=== PATIENT | male | born 1985 | race Caucasian/White ===

== ENCOUNTER 2024-12-11 20:11 | Emergency (ER) | payer OTHER, SELFPAY ==
[2024-12-11] VITALS (16 sets, daily range): BP systolic 109–138; BP diastolic 70–85; PULSE 76–93; RESP 9–22; TEMP 36.8; O2SAT 95–100
--- NOTE | ~2024-12-11 | XR_ITS ---
CHEST RADIOGRAPH CLINICAL HISTORY: hypoxia s/p Narcan . COMPARISON: None available TECHNIQUE: Single portable view of the chest. FINDINGS The cardiomediastinal silhouette is unremarkable. The lungs are clear. IMPRESSION: No focal infiltrate or effusion. Reviewed, dictated and finalized at location A.
--- NOTE | 2024-12-11 20:22 | PC.NURSE ---
while assessing patients mentation and orientation he began swearing at this rn, stating I don't have to fucking answer to you, I'm not answering your fucking questions patient educated that being hateful and verbally aggressive is not tolerated.
--- NOTE | 2024-12-11 20:32 | ED.GENADULT ---
HPI - General Adult General Chief complaint: Unspecified Stated complaint: Unresponsive/apnic, resolved with Narcan Time Seen by Provider: 12/11/24 20:13 History of Present Illness HPI narrative: 39-year-old male with a past medical history including polysubstance abuse including fentanyl and we had. Patient presents to the emergency department after having a fentanyl overdose. He states he insufflated fentanyl about 730 and was found unresponsive and apneic. He had 2 mg of intravenous Narcan and was BVM ventilated by EMS as he was hypoxic. Patient responded and was awake afterwards. Last no some Narcan was at 8:00 p.m.. Patient is presently awake alert oriented, saturating 98% on room air and has no complaints besides feeling nauseous and cold. States that he took a normal amount of fentanyl that he normally does. Denies any other recent injuries or illnesses. Denies any shortness a breath or chest pain at this time. Denies any other substance use or alcohol intake. Related Data Allergies Allergy/AdvReac Type Severity Reaction Status Date / Time No Known Allergies Allergy Mild Verified 03/18/10 14:15 Review of Systems Review of Systems: As reviewed above in HPI Exam Narrative: GENERAL: Disheveled appearance, not any acute distress, awake and answering questions HEAD: [Normocephalic, atraumatic.] EYES: [PERRLA and EOMI.] ENT: Nares clear, no rhinorrhea or epistaxis. Mucous membranes moist. NECK: Supple. CHEST: [Clear to auscultation. No respiratory distress.] HEART: [Regular rate and rhythm]. No murmur heard. [Normal peripheral pulses.] ABDOMEN: [Soft, nondistended], [nontender], [No rigidity or guarding] EXTREMITIES: Normal range of motion. [No edema.] SKIN: Warm, dry, no rash. NEURO: [No focal deficits]. Alert and oriented [x3.] PSYCH: [Normal mood and affect.] Course Course Emergency Course: Signed out to oncoming physician Dr. Zepeda 10:00 p.m. pending re-evaluation for discharge home. Vital Signs Vital signs: Vital Signs Temperature 36.8 C 12/11/24 20:12 Pulse Rate 93 12/11/24 20:12 Respiratory Rate 16 12/11/24 20:12 Blood Pressure 124/84 12/11/24 20:12 Pulse Oximetry 98 04/23/25 20:12 Oxygen Delivery Room Air 12/11/24 20:12 Temperature 36.8 C 12/11/24 20:12 Pulse Rate 80 12/11/24 23:39 Respiratory Rate 14 12/11/24 23:39 Blood Pressure 109/70 12/11/24 23:39 Pulse Oximetry 100 12/11/24 23:39 Oxygen Delivery Room Air 12/11/24 20:12 Medical Decision Making MDM Narrative Medical decision making narrative: 39-year-old male presenting after opiate overdose. He states he was snorting fentanyl at approximately 7:30 a.m. and was found unresponsive and apneic by EMS. He was administered 2 mg of intravenous Narcan and was ventilated with BVM briefly. His hypoxic in route but now 98% saturation on room air. No hypopnea. Normal blood pressure and vital signs. He is not complaining anything besides some nauseousness and cold sensation. He is resting comfortably on a stretcher without any support. Will observe him for approximately 2 hours to make sure he has no relapse of apnea or hypopnea. At approximately 9:00 p.m. patient was noted to have breaths per minute about 9 but still maintaining good saturation. He was easily arousable. Provide 0.4 mg of intravenous Narcan with good response. Workup shows a slight leukocytosis of 11.9 without any concern for infection at this time. Negative chest x-ray. Normal platelet count. Glucose slightly elevated 192. No evidence of ketosis. Normal electrolytes. Patient remains hemodynamically stable. Will be observed for 2 hours post last Narcan and likely safe discharge home. Narcan prescription sent to his pharmacy. Medical Records Medical records reviewed: Yes I reviewed the external patient's medical records. Vital Signs Vital Signs: Vital Signs Temperature 36.8 C 12/11/24 20:12 Pulse Rate 93 12/11/24 20:12 Respiratory Rate 16 12/11/24 20:12 Blood Pressure 124/84 12/11/24 20:12 Pulse Oximetry 98 12/11/24 20:12 Oxygen Delivery Room Air 12/11/24 20:12 Temperature 36.8 C 12/11/24 20:12 Pulse Rate 80 12/11/24 23:39 Respiratory Rate 14 12/11/24 23:39 Blood Pressure 109/70 12/11/24 23:39 Pulse Oximetry 100 12/11/24 23:39 Oxygen Delivery Room Air 12/11/24 20:12 Lab Data Lab results reviewed: Yes I reviewed the patient's lab results. 12/11/24 20:49 12/11/24 20:49 Labs: Lab Results 12/11/24 Range/Units 20:49 WBC 11.9 H (4.5-10.0) K/mm3 RBC 4.28 L (4.6-6.20) M/mm3 Hgb 13.1 L (14.0-18.0) g/dL Hct 39.2 L (42.0-52.0) % MCV 91.6 (80-100) fl MCH 30.6 (26-34) pg MCHC 33.4 (32-36) g/dl RDW 13.0 (11.5-14.5) % Plt Count 314 (150-375) k/mm3 MPV 9.6 (7.4-10.4) fl Immature Gran % (Auto) 0.3 (0-0.5) % Neut % (Auto) 70.6 (45.5-73.1) % Lymph % (Auto) 16.3 L (18.3-44.2) % [place] % (Auto) 8.5 (2.6-8.5) % Eos % (Auto) 3.5 (0-4.4) % Baso % (Auto) 0.8 (0.2-1.2) % Lymph # (Auto) 1.95 (0.9-3.2) K/mm3 [place] # (Auto) 1.0 H (0.1-0.6) K/mm3 Eos # (Auto) 0.4 H (0-0.3) K/mm3 Baso # (Auto) 0.1 (0.0-0.1) K/mm3 Abs Immat Gran (auto) 0.03 (0.00-0.031) K/mm3 Absolute Neuts (auto) 8.4 H (1.3-6.7) K/mm3 Absolute Nucleated RBC 0.000 (0.0-0.012) K/mm3 Nucleated RBC % 0.0 (0.0-0.2) % Sodium 134 L (137-145) mmol/L Potassium 3.4 (3.4-5.0) mmol/L Chloride 98 (98-107) mmol/L Carbon Dioxide 28 (22-30) mmol/L Anion Gap 8 (4-12) mmol/L BUN 24 H (9-20) mg/dL Creatinine 0.73 (0.7-1.3) mg/dL Estim Creat Clear Calc 94 ml/min Estimated GFR > 60 (59 - ) Glucose 192 H (65-110) mg/dL Calcium 8.3 L (8.4-10.2) mg/dL Imaging Data Attestation: I personally reviewed and interpreted this imaging study as follows: My impression: Impressions Chest X-Ray 12/11/24 20:53 IMPRESSION: No focal infiltrate or effusion. Critical Care Time Critical Care Time Critical Care Time: Yes Total Critical Care Time: 35 Discharge Plan Discharge Clinical Impression: Accidental fentanyl overdose Patient Disposition: Home Condition: Stable Instructions: Antibiotic Form, Narcotic Safety (ED), Narcotic Use Disorder (ED) Additional Instructions: Refrain from using any drugs or alcohol. We will send you home with a Narcan prescription if this were to happen again. Follow-up with regular doctor. Patient Language: Moroccan Prescriptions: New naloxone [Narcan] 4 mg/actuation spray,non-aerosol 4 mg intranasal Q2M PRN (Reason: opioid overdose) Qty: 2 0RF Rx Instructions: spray 1 dose into ONE nostril; alternate nostrils w each dose until help arrives ondansetron 4 mg tablet,disintegrating 4 mg PO Q8H PRN (Reason: nausea and vomiting) Qty: 10 0RF Follow-up/Referrals: PHYSICIAN,[employer] [Primary Care Provider] -
[2024-12-11 20:55] LABS: Basophils Absolute Auto 0.1 K/mm3 (0.0-0.1); Basophils Percent Auto 0.8 % (0.2-1.2); Eosinophils Absolute Auto 0.4 K/mm3 (0-0.3); Eosinophils Percent Auto 3.5 % (0-4.4); Hematocrit 39.2 % (42.0-52.0); Hemoglobin 13.1 g/dL (14.0-18.0); Immature Granulocyte Absolute 0.03 K/mm3 (0.00-0.031); Immature Granulocyte Percent A 0.3 % (0-0.5); Lymphocytes Absolute Auto 1.95 K/mm3 (0.9-3.2); Lymphocytes Percent Auto 16.3 % (18.3-44.2); Mean Corpuscular HGB Conc 33.4 g/dl (32-36); Mean Corpuscular Hemoglobin 30.6 pg (26-34); Mean Corpuscular Volume 91.6 fl (80-100); Mean Platelet Volume 9.6 fl (7.4-10.4); Monocytes Percent Auto 8.5 % (2.6-8.5); Neutrophils Absolute Auto 8.4 K/mm3 (1.3-6.7); Neutrophils Percent Auto 70.6 % (45.5-73.1); Platelet Count Result 314 k/mm3 (150-375); Red Blood Count 4.28 M/mm3 (4.6-6.20); White Blood Count 11.9 K/mm3 (4.5-10.0)
[2024-12-11] MEDS: NALOXONE HCL 0.4 MG/ML VIAL IV PUSH ×2 (21:03→21:55)
[2024-12-11] MEDS: ONDANSETRON INJ 4 MG/2 ML VIAL (21:03)
[2024-12-11 21:07] LABS: Anion Gap 8 mmol/L (4-12); Blood Urea Nitrogen 24 mg/dL (9-20); Calcium 8.3 mg/dL (8.4-10.2); Carbon Dioxide 28 mmol/L (22-30); Chloride 98 mmol/L (98-107); Estimated CRCL calculation 94 ml/min; Estimated Glomerular Filt Rate > 60; Glucose 192 mg/dL (65-110); Potassium 3.4 mmol/L (3.4-5.0); Sodium 134 mmol/L (137-145)
== END 2024-12-12 00:07 | disposition home or self-care (01) ==
PROVIDERS: Emergency Provider Student in an Organized Health Care Education/Training Program
DX: T40.411A Poisoning by fentanyl or fentanyl analogs, accidental (unintentional), initial encounter (principal)
CPT/HCPCS: 36415; 71045; 80048; 85025; 96374; 96375; 99284; J2310; J2405